=== PATIENT | male | born 1975 | race Caucasian/White ===

== ENCOUNTER 2016-09-11 20:41 | Emergency (ER) | payer BC ==
[~2016-09-11 20:41] MED LIST: AMLODIPINE BESYL5 MG PO; ASPIRIN PO; BP MED; BYSTOLIC20 MG PO; CERTAGEN PO; CO Q10100 MG PO; COMBIVENT; CYMBALTA PO; DIOVAN320 MG PO; FARXIGA5 MG PO; FISH OIL 1,001000 M1 PO; LANTUS100 U/ML; LISINOPRIL PO; LOPID600 MG PO; LOPRESSOR PO; MAGNESIUM GLUC500 M1 PO; MEDROL DOSEPAK4 MG; METFORMIN PO; NAPROXEN PO; NOVOLOG100 U/ML; PANTOPRAZOLE SO40 MG PO; PLAVIX PO; RIBOFLAVIN; SUMATRIPTAN SU100 MG PO; TOPAMAX50 MG DOB; TRULICITY0.75 MG/0. SQ; Z-PACK; ZOCOR PO; [UNRECOGNIZED DRUG - OTHER]
== END 2016-09-11 23:50 | disposition home or self-care (01) ==
LOC: CED 20:41
DX: R04.0 Epistaxis (principal); I10 Essential (primary) hypertension; E11.9 Type 2 diabetes mellitus without complications; E66.01 Morbid (severe) obesity due to excess calories; Z86.718 Personal history of other venous thrombosis and embolism; Z79.4 Long term (current) use of insulin; Z79.82 Long term (current) use of aspirin; Z79.899 Other long term (current) drug therapy; Z88.1 Allergy status to other antibiotic agents; Z88.8 Allergy status to other drugs, medicaments and biological substances
CPT/HCPCS: 30903; 99283

== ENCOUNTER 2016-09-14 13:26 | Emergency (ER) | payer BC ==
--- NOTE | ~2016-09-14 | CT113 ---
[facility] A Service of [facility] RADIOLOGY TEXT RESULTS PATIENT: BINDU LICONA LOCATION: [facility] : 77 UNIT #: [id number] AGE: [address]: Oscar Branch MD SEX: M ORDER DR: [id number] [facility] [address] [place], [place] [address] [id number] MR#: [id number] Acc #: [id number] NAME: BINDU LICONA : 1975 SEX: M STUDY DATE/TIME: 09/14/2016 15:10 UNIT: [facility] ROOM: STUDY DESCRIPTION: CT Sinuses Wo Contrast Attending Physician: Oscar Branch M.D. Ordering Physician: Oscar Branch M.D. Primary Care Physician: Karthik Bowen M.D. MEDICAL IMAGING REPORT This report is preliminary unless electronic signature is present EXAM Sinus CT examination 09/14/2016 HISTORY 41-year-old male in the ED complaining of right-side facial pain and migraine headache. Symptoms since 09/11/2016. Recent nasal packing for nosebleed. TECHNIQUE Thin-section axial CT images were obtained through the paranasal sinuses. This CT exam was performed with one or more of the following radiation dose reduction techniques: automatic control, adjustment of mA and/or kV according to patient size, and iterative reconstruction. FINDINGS Mild to moderate mucosal thickening is present throughout the frontal, ethmoid, maxillary and sphenoid sinuses. Maxillary mucosal thickening has a somewhat polypoid appearance, there is a small amount of fluid within the right maxillary sinus. No bony destruction or expansile sinus mass is seen. The nasal passageways appear clear. IMPRESSION 1. Mucosal thickening throughout the paranasal sinuses bilaterally as noted above. 2. No visible bony destruction or expansile sinus mass. Nasal passageways are clear. Dictated by... Edwardo Larios M.D. THIS IS AN ELECTRONICALLY VERIFIED REPORT Ewdardo Larios M.D. at 09/14/2016 10:59 PM RGW/rnr [facility] A Service of [facility] RADIOLOGY TEXT RESULTS PATIENT: BINDU LICONA LOCATION: [facility] : 77 UNIT #: [id number] AGE: [address]: Oscar Branch MD SEX: M ORDER DR: TD: 09/14/2016 22:31 JOB #: [id number] MEDICAL IMAGING REPORT Page 1 of 1 COPY
== END 2016-09-14 18:32 | disposition home or self-care (01) ==
LOC: CED 13:26
DX: J32.0 Chronic maxillary sinusitis (principal); E11.9 Type 2 diabetes mellitus without complications; K21.9 Gastro-esophageal reflux disease without esophagitis; Z88.8 Allergy status to other drugs, medicaments and biological substances; Z88.1 Allergy status to other antibiotic agents; Z79.82 Long term (current) use of aspirin; Z79.899 Other long term (current) drug therapy; Z79.01 Long term (current) use of anticoagulants; Z79.4 Long term (current) use of insulin
CPT/HCPCS: 70486; 99284